=== PATIENT | male | born 1945 | race African-American/Black ===

== ENCOUNTER 2021-10-03 20:42 | Inpatient (IN) | payer OTHER, MEDICAID ==
[~2021-10-03] VITALS: Ht 172.7 cm; Wt 87.2 kg
[2021-10-03] MEDS ORDERED: PIPERACILLIN/TAZ 3.375G PREMIX 50 ML IV ONE (21:00)
[2021-10-03] MEDS ORDERED: VANCOMYCIN 1G PREMIX 200 ML IV ONE (21:00)
[2021-10-03] MEDS ORDERED: SODIUM CHLORIDE 0.9% 1000ML BAG (SEPSIS BOLUS) IV ONE (21:00)
[2021-10-03 21:58] LABS: BG BASE EXCESS -2.8 mmol/L (-2.0-2.0); BG CARBOXYHEMOGLOBIN 0.3 % (0.5-1.5); BG FRACTION INSPIRED OXYGEN 60; BG HCO3 ACT 18.2 mmol/L (22.0-26.0); BG METHEMOGLOBIN 0.1 % (0.0-1.5); BG OXYHEMOGLOBIN 98.6 % (94.0-97.0); BG PCO2 21.7 mmHg (35.0-45.0); BG PH 7.542 (7.350-7.450); BG PO2 250.9 mmHg (75.0-100.0); BG SAMPLE SITE RIGHT BRACHIAL; BG TOTAL HEMOGLOBIN 10.7 g/dL (12.0-18.0); BG VENT MODE MASK - BIPAP
[2021-10-03 22:12] LABS: BASOPHILS % 0.2 % (0.0-2.0); EOSINOPHILS % 0.5 % (0.0-5.0); HEMATOCRIT. 25.8 % (42.0-52.0); HEMOGLOBIN. 8.9 g/dL (14.0-18.0); LYMPHOCYTES % 10.9 % (20.0-50.0); MEAN CORPUSCULAR HEMOGLOBIN 30.8 pg (28.0-32.0); MEAN CORPUSCULAR VOLUME 89.1 fL (80.0-94.0); MEAN PLATELET VOLUME 7.9 fl (7.4-10.4); MONOCYTES % 6.8 % (2.0-8.0); NEUTROPHILS % 81.6 % (40.0-76.0); PLATELET 130 x1000/uL (130-400); RED CELL DISTRIBUTION WIDTH 17.3 % (11.6-14.6)
[2021-10-03 22:17] LABS: CHLORIDE 104 mEq/L (98-107)
[2021-10-03 22:18] LABS: INR 1.5; PROTHROMBIN TIME 15.6 sec (9.6-11.0)
[2021-10-03] MEDS ORDERED: NOREPINEPHRINE 8 MG in DEXT 5% WATER 242 ML IV STA (22:27)
[2021-10-03] MEDS ORDERED: NOREPINEPHRINE 8MG/250ML PMX 250 ML IV NR (22:45)
[2021-10-03] MEDS ORDERED: MAGNESIUM 1 G PREMIX 100 ML IV ONE (22:45)
[2021-10-03] MEDS ORDERED: VANCOMYCIN 1GM PMX (XELLIA) 200 ML IV NR (22:45)
[2021-10-03] MEDS ORDERED: KCL 20MEQ/100ML PREMIX 100 ML IV ONE (22:45)
[2021-10-04] VITALS (36 sets, daily range): BP systolic 100–131; BP diastolic 50–70
[2021-10-04 02:03] LABS: CLARITY URINE TURBID (CLEAR); COLOR URINE YELLOW (YELLOW); KETONES URINE 3+ (NEGATIVE); LEUKOCYTE ESTERASE URINE 3+ (NEGATIVE); NITRITE URINE POSITIVE (NEGATIVE); OCCULT BLOOD URINE 2+ (NEGATIVE); PROTEIN URINE 2+ (NEGATIVE); SPECIFIC GRAVITY URINE 1.017 (1.005-1.030)
[2021-10-04] MEDS ORDERED: HYDROCODONE/ACETAMINOPHEN 5/325MG TABLET PO PRN (10:00)
[2021-10-04] MEDS ORDERED: MAGNESIUM/ALUMINUM HYDROXIDE/SIMETHICONE 30ML UDC PO PRN (10:00)
[2021-10-04] MEDS ORDERED: ACETAMINOPHEN 325MG TABLET PO PRN (10:00)
[2021-10-04] MEDS ORDERED: ONDANSETRON HCL 4MG/2ML INJ IV PRN (10:00)
[2021-10-04] MEDS ORDERED: CLONIDINE 0.1MG TABLET PO PRN (10:00)
[2021-10-04] MEDS ORDERED: NALOXONE HCL 0.4MG/ML VIAL IV PRN (10:15)
[2021-10-04] MEDS: ENOXAPARIN 40MG/0.4ML SYR SUBCUT SCH ×2 (11:06→11:16)
[2021-10-04] MEDS: CEFTRIAXONE 1 G PREMIX 50 ML IV SCH ×2 (11:12→11:16)
[2021-10-04] MEDS: PANTOPRAZOLE SODIUM 40 MG/VIAL IV SCH (11:16)
[2021-10-04 12:34] LABS: BASOPHILS % 0.1 % (0.0-2.0); EOSINOPHILS % 0.4 % (0.0-5.0); HEMATOCRIT. 28.7 % (42.0-52.0); HEMOGLOBIN. 9.9 g/dL (14.0-18.0); LYMPHOCYTES % 7.1 % (20.0-50.0); MEAN CORPUSCULAR HEMOGLOBIN 30.5 pg (28.0-32.0); MEAN CORPUSCULAR VOLUME 88.9 fL (80.0-94.0); MEAN PLATELET VOLUME 7.9 fl (7.4-10.4); MONOCYTES % 7.7 % (2.0-8.0); NEUTROPHILS % 84.7 % (40.0-76.0); PLATELET 150 x1000/uL (130-400); RED BLOOD CELL COUNT 3.23 mill/uL (4.7-6.1)
[2021-10-04 12:43] LABS: CHLORIDE 107 mEq/L (98-107)
[2021-10-04 12:47] LABS: CHLORIDE 107 mEq/L (98-107)
[2021-10-04 12:50] LABS: PHOSPHORUS 2.5 mg/dL (2.5-4.9)
[2021-10-04 12:54] LABS: TOTAL IRON BINDING CAPACITY 134 ug/dL (250-450)
[2021-10-04] MEDS ORDERED: IPRATROPIUM/ALBUTEROL 0.5-3(2.5)MG/3ML NEB HHN PRN (15:15)
[2021-10-04] MEDS: POTASSIUM CHLORIDE 20MEQ TABLET SR PO SCH (15:29)
[2021-10-04] MEDS ORDERED: NOREPINEPHRINE 8 MG in DEXTROSE 5% WATER 250 ML IV PRN (18:00)
[2021-10-04] MEDS: DIGOXIN 250MCG TABLET PO SCH (18:07)
[2021-10-05] VITALS (24 sets, daily range): BP systolic 89–139; BP diastolic 54–78
[2021-10-05 06:34] LABS: CHLORIDE 108 mEq/L (98-107)
[2021-10-05 06:55] LABS: HDL CHOLESTEROL 13 mg/dL (40-59); LDL CHOLESTEROL 42 mg/dL (5-100); PHOSPHORUS 1.8 mg/dL (2.5-4.9); T4 FREE 1.33 ng/dL (0.76-1.46)
[2021-10-05 08:25] LABS: BG BASE EXCESS -3.3 mmol/L (-2.0-2.0); BG CARBOXYHEMOGLOBIN 0.3 % (0.5-1.5); BG DEOXYHEMOGLOBIN 3.5 % (0.0-5.0); BG FRACTION INSPIRED OXYGEN 21; BG HCO3 ACT 19.9 mmol/L (22.0-26.0); BG METHEMOGLOBIN 0.3 % (0.0-1.5); BG OXYGEN SATURATION 96.5 % (92.0-98.5); BG OXYHEMOGLOBIN 95.9 % (94.0-97.0); BG PCO2 28.9 mmHg (35.0-45.0); BG PH 7.456 (7.350-7.450); BG PO2 84.1 mmHg (75.0-100.0); BG SAMPLE SITE RIGHT BRACHIAL; BG TOTAL HEMOGLOBIN 8.6 g/dL (12.0-18.0); BG VENT MODE ROOM AIR
[2021-10-05] MEDS: POTASSIUM CHLORIDE 20MEQ TABLET SR PO SCH (08:26)
[2021-10-05] MEDS: PANTOPRAZOLE SODIUM 40 MG/VIAL IV SCH (08:26)
[2021-10-05] MEDS ORDERED: CEFTRIAXONE 1,000 MG in DEXTROSE 5% WATER 50 ML IV SCH (09:00)
[2021-10-05 09:14] LABS: BASOPHILS % 0.1 % (0.0-2.0); EOSINOPHILS % 1.6 % (0.0-5.0); HEMATOCRIT. 27.2 % (42.0-52.0); HEMOGLOBIN. 9.4 g/dL (14.0-18.0); LYMPHOCYTES % 7.1 % (20.0-50.0); MEAN CORPUSCULAR HEMOGLOBIN 30.4 pg (28.0-32.0); MEAN CORPUSCULAR VOLUME 88.3 fL (80.0-94.0); MEAN PLATELET VOLUME 7.7 fl (7.4-10.4); MONOCYTES % 6.6 % (2.0-8.0); NEUTROPHILS % 84.6 % (40.0-76.0); PLATELET 139 x1000/uL (130-400); RED BLOOD CELL COUNT 3.08 mill/uL (4.7-6.1)
[2021-10-05] MEDS ORDERED: POTASSIUM CHLORIDE 20MEQ TABLET SR PO NR (11:00)
[2021-10-05 11:58] LABS: CREATINE KINASE MB FRACTION 6.1 ng/mL (0.5-3.6)
[2021-10-05] MEDS: DIGOXIN 250MCG TABLET PO SCH (17:55)
== END 2021-10-05 20:30 | disposition short-term general hospital (02) | DRG 871 ==
LOC: ER 20:42 → MICUSO 23:51 → MICUNO 10-04 13:45 → 6WST 10-05 13:37
PROVIDERS: ADMIT Internal Medicine; ATTEND Internal Medicine
PROC: B54BZZA Ultrasonography of Right Lower Extremity Veins, Guidance (ICD-10-PCS; principal; 2021-10-03)
PROC: 06HY33Z Insertion of Infusion Device into Lower Vein, Percutaneous Approach (ICD-10-PCS; 2021-10-03)
PROC: 5A09357 Assistance with Respiratory Ventilation, Less than 24 Consecutive Hours, Continuous Positive Airway Pressure (ICD-10-PCS; 2021-10-03)
DX: A41.50 Gram-negative sepsis, unspecified (principal); G93.41 Metabolic encephalopathy; J18.9 Pneumonia, unspecified organism; J96.01 Acute respiratory failure with hypoxia; R65.21 Severe sepsis with septic shock; E44.0 Moderate protein-calorie malnutrition; G82.20 Paraplegia, unspecified; I48.20 Chronic atrial fibrillation, unspecified; N39.0 Urinary tract infection, site not specified; C79.51 Secondary malignant neoplasm of bone; D68.9 Coagulation defect, unspecified; L89.150 Pressure ulcer of sacral region, unstageable; E87.6 Hypokalemia; I10 Essential (primary) hypertension; D64.9 Anemia, unspecified; C61 Malignant neoplasm of prostate; Z20.822 Contact with and (suspected) exposure to COVID-19; Z68.29 Body mass index [BMI] 29.0-29.9, adult; Z74.01 Bed confinement status; Z87.891 Personal history of nicotine dependence; Z86.73 Personal history of transient ischemic attack (TIA), and cerebral infarction without residual deficits
CPT/HCPCS: 36415; 36600; 71045; 80048; 80053; 80061; 80076; 81003; 82375; 82550; 82553; 82805; 83540; 83550; 83605; 83735; 83880; 84100; 84145; 84439; 84443; 84484; 85025; 85379; 87077; 87186; 87426; 93005; 93306; 93970; 94660; 99291; C9113; J0696; J1650; J2543; J3370; J3475; J3480; J3490; J7030; J7060; A4315

== ENCOUNTER 2021-12-01 15:11 | Emergency (ER) | payer OTHER, MEDICAID ==
[~2021-12-01] VITALS: Ht 182.9 cm; Wt 84.0 kg
[2021-12-01] MEDS ORDERED: SODIUM CHLORIDE 0.9% 1000ML BAG (SEPSIS BOLUS) IV ONE (16:00)
[2021-12-01 16:16] LABS: HEMATOCRIT. 21.3 % (42.0-52.0); HEMOGLOBIN. 7.3 g/dL (14.0-18.0); MEAN CORPUSCULAR HEMOGLOBIN 28.5 pg (28.0-32.0); MEAN CORPUSCULAR VOLUME 83.1 fL (80.0-94.0); MEAN PLATELET VOLUME 7.3 fl (7.4-10.4); PLATELET 307 x1000/uL (130-400); RED BLOOD CELL COUNT 2.57 mill/uL (4.7-6.1); RED CELL DISTRIBUTION WIDTH 17.7 % (11.6-14.6)
[2021-12-01 16:25] LABS: CHLORIDE 101 mEq/L (98-107); INR 1.6; PROTHROMBIN TIME 16.6 sec (9.6-11.0)
[2021-12-01 16:48] LABS: PLATELET ESTIMATE NORMAL
[2021-12-01] MEDS ORDERED: PIPERACILLIN/TAZ 3.375G PREMIX 50 ML IV ONE (17:00)
[2021-12-01] MEDS ORDERED: DILTIAZEM HCL 5MG/ML 5ML VIAL IV ONE (17:45)
[2021-12-01 17:54] LABS: CLARITY URINE TURBID (CLEAR); COLOR URINE DARK YELLOW (YELLOW); KETONES URINE 1+ (NEGATIVE); LEUKOCYTE ESTERASE URINE 3+ (NEGATIVE); NITRITE URINE POSITIVE (NEGATIVE); OCCULT BLOOD URINE 2+ (NEGATIVE); PH URINE 5.5 (4.5-8.0); PROTEIN URINE 2+ (NEGATIVE); SPECIFIC GRAVITY URINE 1.017 (1.005-1.030)
[2021-12-01] MEDS ORDERED: VANCOMYCIN 1500MG in DEXTROSE 5% WATER 250ML IV NR (18:30)
[2021-12-01 20:34] VITALS: BP 101/42
== END 2021-12-01 22:13 | disposition short-term general hospital (02) ==
LOC: ER 15:11 → CANBEDREQ 18:42 → ER 22:13
DX: A41.9 Sepsis, unspecified organism (principal); N39.0 Urinary tract infection, site not specified; L89.109 Pressure ulcer of unspecified part of back, unspecified stage; I48.91 Unspecified atrial fibrillation; I10 Essential (primary) hypertension; G82.20 Paraplegia, unspecified; Z20.822 Contact with and (suspected) exposure to COVID-19
CPT/HCPCS: 36415; 71045; 80053; 81003; 83605; 83880; 84145; 84484; 85025; 85610; 85651; 86850; 86900; 86901; 87040; 87077; 87086; 87186; 87426; 93005; 96361; 96365; 96366; 96367; 99285; C9803; J2543; J3370; J7030; J7060

== ENCOUNTER 2021-12-31 12:24 | Inpatient (IN) | payer OTHER, MEDICAID ==
[2021-12-31] VITALS (8 sets, daily range): BP systolic 96–142; BP diastolic 50–91
[~2021-12-31] VITALS: Ht 180.3 cm; Wt 65.4 kg
[2021-12-31] MEDS ORDERED: SODIUM CHLORIDE 0.9% 1,000 ML IV ONE ×2 (12:45→16:00)
[2021-12-31] MEDS ORDERED: VANCOMYCIN 1G PREMIX 200 ML IV ONE (13:30)
[2021-12-31] MEDS ORDERED: PIPERACILLIN/TAZ 3.375G PREMIX 50 ML IV ONE (13:30)
[2021-12-31 13:56] LABS: HEMATOCRIT. 26.2 % (42.0-52.0); HEMOGLOBIN. 8.6 g/dL (14.0-18.0); MEAN CORPUSCULAR HEMOGLOBIN 27.4 pg (28.0-32.0); MEAN CORPUSCULAR VOLUME 83.8 fL (80.0-94.0); MEAN PLATELET VOLUME 7.6 fl (7.4-10.4); PLATELET 268 x1000/uL (130-400); RED BLOOD CELL COUNT 3.13 mill/uL (4.7-6.1); RED CELL DISTRIBUTION WIDTH 19.5 % (11.6-14.6)
[2021-12-31 14:05] LABS: CLARITY URINE TURBID (CLEAR); KETONES URINE TRACE (NEGATIVE); LEUKOCYTE ESTERASE URINE 3+ (NEGATIVE); NITRITE URINE NEGATIVE (NEGATIVE); OCCULT BLOOD URINE 3+ (NEGATIVE); PROTEIN URINE 3+ (NEGATIVE); SPECIFIC GRAVITY URINE 1.013 (1.005-1.030)
[2021-12-31 14:08] LABS: INR 1.5; PROTHROMBIN TIME 15.8 sec (9.6-11.0)
[2021-12-31 14:12] LABS: CHLORIDE 100 mEq/L (98-107)
[2021-12-31 14:17] LABS: COLOR URINE BLOODY (YELLOW)
[2021-12-31] MEDS ORDERED: ACETAMINOPHEN 325MG TABLET PO ONE (15:30)
[2021-12-31] MEDS ORDERED: NOREPINEPHRINE 8MG/250ML PMX 250 ML IV STA (15:57)
[2021-12-31] MEDS ORDERED: PHENYLEPHRINE 50 MG in DEXT 5% WATER 245 ML IV STA (16:45)
[2021-12-31 16:51] LABS: PLATELET ESTIMATE NORMAL
[2021-12-31] MEDS: PHENYLEPHRINE 50 MG in DEXT 5% WATER 245 ML IV NR (17:22)
[2021-12-31] MEDS ORDERED: ONDANSETRON HCL 4MG/2ML INJ IV PRN (22:00)
[2021-12-31] MEDS ORDERED: POTASSIUM CHLORIDE INJ 40 MEQ in DEXT 5% WATER 250 ML IV ONE (22:45)
[2021-12-31] MEDS ORDERED: VANCOMYCIN 1G PREMIX 200 ML IV NR (23:00)
[2021-12-31] MEDS: SODIUM CHLORIDE 0.9% 1,000 ML IV SCH (23:52)
[2021-12-31] MEDS: KCL 20MEQ/100ML X 2 FOR TOTAL KCL 40MEQ/200ML IV SCH (23:54)
[2022-01-01] VITALS (80 sets, daily range): BP systolic 74–162; BP diastolic 37–132
[2022-01-01] MEDS: PHENYLEPHRINE 50 MG in DEXT 5% WATER 245 ML IV NR (01:24)
[2022-01-01] MEDS: PIPERACILLIN/TAZOBACTAM 3.375 G in DEXTROSE 5% WATER 50 ML IV SCH ×2 (01:46→06:43)
[2022-01-01] MEDS: KCL 20MEQ/100ML X 2 FOR TOTAL KCL 40MEQ/200ML IV SCH (01:47)
[2022-01-01] MEDS ORDERED: TERAZOSIN PO (02:12)
[2022-01-01] MEDS ORDERED: SENN-257 MT (02:12)
[2022-01-01] MEDS ORDERED: THERAVITE (02:12)
[2022-01-01] MEDS ORDERED: prednisone (02:12)
[2022-01-01] MEDS ORDERED: AMLO10TA80 MT (02:12)
[2022-01-01] MEDS ORDERED: OMEP20CA14 MT (02:12)
[2022-01-01] MEDS ORDERED: DABI150C PO (02:12)
[2022-01-01] MEDS ORDERED: ZINC100T2 PO (02:12)
[2022-01-01] MEDS ORDERED: ABIRATERONE (02:12)
[2022-01-01] MEDS ORDERED: COLL30OI TP (02:12)
[2022-01-01] MEDS ORDERED: Vitamin C PO (02:12)
[2022-01-01] MEDS ORDERED: potassium chloride (02:12)
[2022-01-01] MEDS ORDERED: PHENYLEPHRINE 50 MG in DEXT 5% WATER 245 ML IV PRN (04:30)
[2022-01-01 04:43] LABS: CHLORIDE 104 mEq/L (98-107)
[2022-01-01 04:44] LABS: BASOPHILS % 0.4 % (0.0-2.0); EOSINOPHILS % 1.2 % (0.0-5.0); HEMATOCRIT. 26.4 % (42.0-52.0); HEMOGLOBIN. 8.6 g/dL (14.0-18.0); LYMPHOCYTES % 10.1 % (20.0-50.0); MEAN CORPUSCULAR VOLUME 86.4 fL (80.0-94.0); MEAN PLATELET VOLUME 6.9 fl (7.4-10.4); MONOCYTES % 13.5 % (2.0-8.0); NEUTROPHILS % 74.8 % (40.0-76.0); PLATELET 256 x1000/uL (130-400); RED BLOOD CELL COUNT 3.06 mill/uL (4.7-6.1); RED CELL DISTRIBUTION WIDTH 19.7 % (11.6-14.6)
[2022-01-01 05:17] LABS: INR 1.5; PROTHROMBIN TIME 15.8 sec (9.6-11.0)
[2022-01-01] MEDS ORDERED: PANTOPRAZOLE SODIUM 40 MG/VIAL IV SCH (09:00)
[2022-01-01] MEDS: SODIUM CHLORIDE 0.9% 1,000 ML IV SCH (09:11)
[2022-01-01] MEDS ORDERED: CLONIDINE 0.1MG TABLET PO PRN (11:00)
[2022-01-01] MEDS ORDERED: SODIUM CHLORIDE 0.9% 1,000 ML IV SCH (11:00)
[2022-01-01] MEDS ORDERED: MAGNESIUM/ALUMINUM HYDROXIDE/SIMETHICONE 30ML UDC PO PRN (11:00)
[2022-01-01] MEDS ORDERED: ACETAMINOPHEN 325MG TABLET PO PRN (11:00)
[2022-01-01] MEDS ORDERED: DILTIAZEM HCL 5MG/ML 5ML VIAL IV PRN (11:30)
[2022-01-01] MEDS ORDERED: CEFTRIAXONE 1 G PREMIX 50 ML IV SCH (12:30)
[2022-01-01] MEDS ORDERED: CEFTRIAXONE 1,000 MG in DEXTROSE 5% WATER 50 ML IV SCH (13:30)
[2022-01-01] MEDS ORDERED: ENOXAPARIN 40MG/0.4ML SYR SUBCUT SCH (14:00)
[2022-01-01] MEDS ORDERED: VANCOMYCIN 1G PREMIX 200 ML IV SCH (18:00)
[2022-01-01] MEDS ORDERED: VANCOMYCIN 1.25GM PMX (XELLIA) 250 ML IV SCH (22:00)
== END 2022-01-02 01:00 | disposition short-term general hospital (02) | DRG 698 ==
LOC: ER 12:56 → EDBEDREQTM 15:53 → EDBEDREQSVC 15:53 → CVICU 17:24 → EDBEDREQTM 17:45 → EDBEDREQ 17:45 → EDBEDREQSVC 17:45
PROVIDERS: ADMIT Internal Medicine; ATTEND Internal Medicine
DX: T83.511A Infection and inflammatory reaction due to indwelling urethral catheter, initial encounter (principal); A41.50 Gram-negative sepsis, unspecified; E43 Unspecified severe protein-calorie malnutrition; R65.21 Severe sepsis with septic shock; G82.20 Paraplegia, unspecified; C79.51 Secondary malignant neoplasm of bone; E87.20 Acidosis, unspecified; N30.00 Acute cystitis without hematuria; Z20.822 Contact with and (suspected) exposure to COVID-19; Z66 Do not resuscitate; I10 Essential (primary) hypertension; D64.9 Anemia, unspecified; C61 Malignant neoplasm of prostate; I48.91 Unspecified atrial fibrillation; N28.9 Disorder of kidney and ureter, unspecified; I95.9 Hypotension, unspecified; Z86.61 Personal history of infections of the central nervous system; Z68.20 Body mass index [BMI] 20.0-20.9, adult; Z86.73 Personal history of transient ischemic attack (TIA), and cerebral infarction without residual deficits; Z74.01 Bed confinement status; Z85.46 Personal history of malignant neoplasm of prostate; S31.000A Unspecified open wound of lower back and pelvis without penetration into retroperitoneum, initial encounter
CPT/HCPCS: 36415; 71045; 80048; 80053; 81003; 82962; 83605; 84145; 85025; 87077; 87186; 87426; 93005; 93306; 93970; 99285; C9113; J0696; J1650; J2370; J2543; J3370; J3480; J3490; J7030; J7060; A4315